=== PATIENT | female | born 1945 | race Caucasian/White ===

== ENCOUNTER 2022-05-16 15:09 | Inpatient (IN) | payer BC, OTHER ==
[~2022-05-16 15:09] MED LIST: SODIUM ZIRCONIUM CYCLOSILICATE (LOKELMA) 5 GM PACKET PO ONE
[2022-05-16] MEDS ORDERED: SODIUM CHLORIDE 1,000 ML IV STA (17:43)
[2022-05-16] MEDS ORDERED: PIPERACILLIN/TAZOB 4.5 GM 4.5 GM in DEXTROSE 5%-WATER 100 ML IVPB ONE (17:44)
[2022-05-16] MEDS ORDERED: PIPERACILLIN/TAZOB 4.5 GM 4.5 GM/100 ML BAG IVPB ONE (18:51)
[2022-05-16 19:29] LABS: VENOUS BASE EXCESS -0.9 mmol/L (-2-2); VENOUS O2 SATURATION 25.6 % (70-80); VENOUS PCO2 38.4 mmHg (38-52); VENOUS PH 7.407 (7.310-7.410)
[2022-05-16 19:41] LABS: BASO % 0.6 % (0-2.0); HEMATOCRIT 34.7 % (32.4-45.2); HEMOGLOBIN 11.1 GM/dL (10.7-15.3); LYMPH % 12.5 % (8-40); MCH 24.4 pg (25.7-33.7); MCHC 31.9 g/dl (32.0-36.0); MEAN CELL VOLUME 76.3 fl (80-96); MEAN PLT VOLUME 8.3 fl (7.5-11.1); MONO % 11.5 % (3.8-10.2); NEUT % 75.4 % (42.8-82.8); PLATELET COUNT 276 10^3/uL (134-434); RBC 4.54 M/mm3 (3.60-5.2); RDW 17.6 % (11.6-15.6); WHITE BLOOD COUNT 10.8 K/mm3 (4.0-10.0)
[2022-05-16 19:47] LABS: INR 1.11 (0.83-1.09); PROTHROMBIN TIME (PATIENT) 12.8 SEC (9.7-13.0)
[2022-05-16 19:50] LABS: ACTIVATED PTT 28.7 SECONDS (25.2-36.5)
[2022-05-16 19:56] LABS: ALBUMIN 3.1 g/dl (3.4-5.0); BLOOD UREA NITROGEN 20.4 mg/dL (7-18); CALCIUM 9.1 mg/dL (8.5-10.1)
[2022-05-16 20:02] LABS: BILIRUBIN,TOTAL 0.6 mg/dL (0.2-1); TOT PROT 7.3 g/dl (6.4-8.2)
[2022-05-16 20:03] LABS: LACTIC ACID 2.6 mmol/L (0.4-2.0)
[2022-05-16] MEDS ORDERED: VANCOMYCIN 1 GM in D5W (PRE-DOCKED) 1,000 MG/250 ML IVPB ONE (20:06)
[2022-05-16] MEDS ORDERED: ASPIRIN 81 MG CHEWABLE TABLETS PO ONE ×2 (20:18→20:48)
[2022-05-16] MEDS ORDERED: SODIUM ZIRCONIUM CYCLOSILICATE (LOKELMA) 5 GM PACKET ONE (20:26)
[2022-05-16] MEDS ORDERED: ASPIRIN 81 MG CHEWABLE TABLETS ONE ×2 (20:27→20:57)
[2022-05-16] MEDS ORDERED: VANCOMYCIN/WATER FOR INJ (PEG) 1,000 MG/200 ML BAG IVPB ONE (20:27)
[2022-05-16] MEDS ORDERED: HEPARIN NA (PORCINE) 5,000 UNITS/ML 1ML VIAL IVPUSH PRN ×2 (20:49)
[2022-05-16] MEDS ORDERED: ATORVASTATIN CA 80 MG TABLET (FP) PO ONE (20:49)
[2022-05-16] MEDS: SODIUM ZIRCONIUM CYCLOSILICATE (LOKELMA) 5 GM PACKET PO SCH (20:54)
[2022-05-16] MEDS ORDERED: ATORVASTATIN CA 80 MG TABLET (FP) ONE (20:57)
[2022-05-16] MEDS ORDERED: HEPARIN NA (PORCINE) 5,000 UNITS/ML 1ML VIAL ONE (20:57)
[2022-05-16] MEDS ORDERED: HEPARIN INFUSION - 25,000 UNITS/500 ML INFUS.BAG IVPB ONE (20:58)
[2022-05-16] MEDS ORDERED: HEPARIN - 25,000 UNIT in SODIUM CHLORIDE 495 ML IV SCH (21:00)
[2022-05-16] MEDS ORDERED: LACTATED RINGERS SOLUTION 1000 ML INFUS.BAG IV ONE (23:32)
[2022-05-17 00:23] LABS: LACTIC ACID 2.3 mmol/L (0.4-2.0)
[2022-05-17 01:23] VITALS: BMI 27.1
[2022-05-17 01:50] LABS: HEMATOCRIT 31.3 % (32.4-45.2); HEMOGLOBIN 9.8 GM/dL (10.7-15.3); MCH 24.1 pg (25.7-33.7); MCHC 31.3 g/dl (32.0-36.0); MEAN CELL VOLUME 77.1 fl (80-96); MEAN PLT VOLUME 8.5 fl (7.5-11.1); PLATELET COUNT 250 10^3/uL (134-434); RBC 4.06 M/mm3 (3.60-5.2); RDW 17.8 % (11.6-15.6); WHITE BLOOD COUNT 12.1 K/mm3 (4.0-10.0)
[2022-05-17 02:27] LABS: CALCIUM 7.9 mg/dL (8.5-10.1)
[2022-05-17 02:28] LABS: ALBUMIN 2.6 g/dl (3.4-5.0); BLOOD UREA NITROGEN 22.2 mg/dL (7-18)
[2022-05-17 02:33] LABS: BILIRUBIN,TOTAL 0.5 mg/dL (0.2-1)
[2022-05-17 02:55] LABS: LACTIC ACID 2.2 mmol/L (0.4-2.0)
[2022-05-17 07:53] LABS: BASO % 0.7 % (0-2.0); EOS % 0.1 % (0-4.5); HEMATOCRIT 30.5 % (32.4-45.2); HEMOGLOBIN 9.3 GM/dL (10.7-15.3); LYMPH % 16.4 % (8-40); MCH 23.7 pg (25.7-33.7); MCHC 30.6 g/dl (32.0-36.0); MEAN CELL VOLUME 77.3 fl (80-96); MEAN PLT VOLUME 8.5 fl (7.5-11.1); MONO % 10.2 % (3.8-10.2); NEUT % 72.6 % (42.8-82.8); PLATELET COUNT 246 10^3/uL (134-434); RBC 3.95 M/mm3 (3.60-5.2); RDW 18.1 % (11.6-15.6); WHITE BLOOD COUNT 10.4 K/mm3 (4.0-10.0)
[2022-05-17 08:01] LABS: INR 1.12 (0.83-1.09); PROTHROMBIN TIME (PATIENT) 12.9 SEC (9.7-13.0)
[2022-05-17 08:03] LABS: ACTIVATED PTT 48.8 SECONDS (25.2-36.5)
[2022-05-17 08:21] LABS: ALBUMIN 2.4 g/dl (3.4-5.0); CALCIUM 7.9 mg/dL (8.5-10.1)
[2022-05-17 08:22] LABS: BLOOD UREA NITROGEN 21.5 mg/dL (7-18)
[2022-05-17 08:24] LABS: CREATININE 0.8 mg/dL (0.55-1.3)
[2022-05-17 08:25] LABS: TOT PROT 5.8 g/dl (6.4-8.2)
[2022-05-17 08:26] LABS: BILIRUBIN,TOTAL 0.4 mg/dL (0.2-1)
[2022-05-17] MEDS ORDERED: VANCOMYCIN 1 GM/200 ML PREMIX BAG IVPB SCH (09:00)
[2022-05-17] MEDS: SODIUM ZIRCONIUM CYCLOSILICATE (LOKELMA) 5 GM PACKET PO SCH (09:44)
[2022-05-17] MEDS ORDERED: PIPERACILLIN/TAZOB 4.5 GM 4.5 GM in DEXTROSE 5%-WATER 100 ML IVPB SCH ×2 (10:00→11:30)
[2022-05-17 13:55] VITALS: BP 118/83; PULSE 113; RESP 20; TEMP 98
[2022-05-18] MEDS ORDERED: VANCOMYCIN 1 GM/200 ML PREMIX BAG IVPB SCH (09:00)
== END 2022-05-17 14:15 | disposition short-term general hospital (02) | DRG 176 ==
LOC: JER 15:09 → JERBED 17:41 → JICU 05-17 00:26
PROVIDERS: ADMIT Internal Medicine; ATTEND Internal Medicine
DX: I26.99 Other pulmonary embolism without acute cor pulmonale (principal); I47.1 Supraventricular tachycardia; E87.20 Acidosis, unspecified; L03.116 Cellulitis of left lower limb; L03.115 Cellulitis of right lower limb; E87.5 Hyperkalemia; I27.20 Pulmonary hypertension, unspecified; I25.2 Old myocardial infarction
CPT/HCPCS: 0241U-QW; 36415; 71045-TC-FY; 71275-TC; 80053; 80061; 82465; 82550; 82553; 82803; 83036; 83605; 83880; 84439; 84443; 84484; 85025; 85027; 85379; 85384; 85610; 85730; 86850; 86900; 86901; 87040; 87070; 87186; 87205; 93005; 93010; 93306-TC; 93308; 93970-TC; 99291; J1644

== ENCOUNTER 2023-03-19 16:58 | Emergency (ER) | payer BC ==
[2023-03-19 17:11] VITALS: RESP 18; BMI 30.2
[2023-03-19] MEDS ORDERED: DIPHTH,PERTUSS(ACELL),TET 0.5 ML DISP.SYRIN IM ONE ×2 (17:46→18:14)
[2023-03-19] MEDS ORDERED: LIDOCAINE 1%/EPI 1:100000 (20 ML MULTI DOSE VIAL) INF ONE (18:37)
[2023-03-19] MEDS ORDERED: LIDOCAINE 1%/EPI 1:100000 (50 ML MULTI DOSE VIAL) ONE (18:43)
[2023-03-19 20:37] VITALS: BP 136/78; PULSE 88; TEMP 98.5
== END 2023-03-19 20:37 | disposition home or self-care (01) ==
LOC: JER 16:58
PROC: 3E0234Z Introduction of Serum, Toxoid and Vaccine into Muscle, Percutaneous Approach (ICD-10-PCS; principal; 2023-03-19)
PROC: 0HQ1XZZ Repair Face Skin, External Approach (ICD-10-PCS; 2023-03-19)
DX: S01.81XA Laceration without foreign body of other part of head, initial encounter (principal); S60.012A Contusion of left thumb without damage to nail, initial encounter; W01.0XXA Fall on same level from slipping, tripping and stumbling without subsequent striking against object, initial encounter; Y92.009 Unspecified place in unspecified non-institutional (private) residence as the place of occurrence of the external cause
CPT/HCPCS: 70450-TC; 70486-TC; 72125-TC; 73130-TC-LT-FY; 90715; 93005; 93010; 99285-25

== ENCOUNTER 2023-11-04 04:51 | Day surgery (SDC) | payer BC ==
[2023-11-03 10:50] VITALS: BMI 30.4
[2023-11-04 11:34] VITALS: TEMP 97.5
[2023-11-04 12:08] VITALS: BP 151/67; PULSE 72; RESP 15
[2023-11-04 13:26] LABS: CHLORIDE 110 mmol/L (98-107); POTASSIUM 3.9 mmol/L (3.5-5.1); SODIUM 144 mmol/L (136-145)
[2023-11-04 13:28] LABS: CALCIUM 8.9 mg/dL (8.5-10.1)
[2023-11-04 13:29] LABS: ALBUMIN 3.6 g/dl (3.4-5.0); ANION GAP 6 mmol/L (4-13); CO2 28 mmol/L (21-32); GLUCOSE,RANDOM 134 mg/dL (74-106)
[2023-11-04 13:32] LABS: CREATININE 0.8 mg/dL (0.55-1.3); SGOT/AST 18 U/L (15-37); SGPT/ALT 21 U/L (13-61)
[2023-11-04 13:34] LABS: BILIRUBIN,TOTAL 0.4 mg/dL (0.2-1); TOT PROT 6.8 g/dl (6.4-8.2)
[2023-11-04 13:35] LABS: ALK PHOS 64 U/L (45-117)
[2023-11-04 13:56] LABS: IRON SERUM 51 ug/dL (50-175); TOTAL IRON BINDING CAPACITY 508 ug/dL (250-450)
== END 2023-11-04 12:56 | disposition home or self-care (01) ==
LOC: JASU-ENDO 04:51
PROVIDERS: ATTEND Internal Medicine Gastroenterology
PROC: 0DBH8ZX Excision of Cecum, Via Natural or Artificial Opening Endoscopic, Diagnostic (ICD-10-PCS; 2023-11-04)
PROC: 0DBL8ZX Excision of Transverse Colon, Via Natural or Artificial Opening Endoscopic, Diagnostic (ICD-10-PCS; 2023-11-04)
PROC: 0DBN8ZX Excision of Sigmoid Colon, Via Natural or Artificial Opening Endoscopic, Diagnostic (ICD-10-PCS; 2023-11-04)
PROC: 3E0H8KZ Introduction of Other Diagnostic Substance into Lower GI, Via Natural or Artificial Opening Endoscopic (ICD-10-PCS; 2023-11-04)
PROC: 0DB98ZX Excision of Duodenum, Via Natural or Artificial Opening Endoscopic, Diagnostic (ICD-10-PCS; 2023-11-04)
PROC: 0DB78ZX Excision of Stomach, Pylorus, Via Natural or Artificial Opening Endoscopic, Diagnostic (ICD-10-PCS; 2023-11-04)
PROC: 0DB68ZX Excision of Stomach, Via Natural or Artificial Opening Endoscopic, Diagnostic (ICD-10-PCS; 2023-11-04)
PROC: 0DBL8ZX Excision of Transverse Colon, Via Natural or Artificial Opening Endoscopic, Diagnostic (ICD-10-PCS; principal; 2023-11-04 10:00)
DX: D12.0 Benign neoplasm of cecum (principal); D12.3 Benign neoplasm of transverse colon; D12.8 Benign neoplasm of rectum; K63.5 Polyp of colon; K29.50 Unspecified chronic gastritis without bleeding; K44.9 Diaphragmatic hernia without obstruction or gangrene; K21.9 Gastro-esophageal reflux disease without esophagitis; K31.7 Polyp of stomach and duodenum; I10 Essential (primary) hypertension
CPT/HCPCS: 36415; 80053; 82378; 82728; 83540; 83550; 86140; 88305-TC; 88342-TC

== ENCOUNTER 2024-01-27 05:23 | Inpatient (IN) | payer BC ==
[2024-01-27] MEDS ORDERED: BUPIVACAINE HCL/PF 0.25% (2.5MG/ML) 10 ML VIAL ONE (11:01)
[2024-01-27] MEDS ORDERED: INDOCYANINE GREEN 25 MG/10 ML VIAL IVPUSH ONE (11:05)
[2024-01-27] MEDS ORDERED: SUCCINYLCHOLINE CHLORIDE 200 MG/10 ML SYRINGE ONE (11:44)
[2024-01-27] MEDS ORDERED: MIDAZOLAM HCL 2 MG/2 ML SINGLE DOSE VIAL ONE (11:44)
[2024-01-27] MEDS ORDERED: ROCURONIUM BROMIDE 50 MG/5 ML SYRINGE ONE (11:44)
[2024-01-27] MEDS: cefOXitin SODIUM 2 GM VIAL (RESTRICTED TO ID) IVPB ONE (12:30)
[2024-01-27] MEDS ORDERED: HYDROmorphone HCl 2 MG/ML VIAL ONE (12:56)
[2024-01-27] MEDS: BUPIVACAINE HCL/PF 0.25% (2.5MG/ML) 10 ML VIAL IJ ONE ×2 (13:12)
[2024-01-27] MEDS ORDERED: METOPROLOL TARTRATE 5 MG/5 ML VIAL ONE (16:36)
[2024-01-27] MEDS ORDERED: ONDANSETRON 4 MG/2 ML VIAL ONE ×2 (16:36)
[2024-01-27] MEDS ORDERED: GLYCOPYRROLATE 0.2 MG/1 ML VIAL ONE (16:37)
[2024-01-27] MEDS ORDERED: NEOSTIGMINE METHYLSULFATE 0.5 MG/1 ML - 10 ML MDV ONE (16:37)
[2024-01-27] MEDS: ACETAMINOPHEN 1000 MG/100 ML BAG IVPB ONE (17:10)
[2024-01-27 17:36] LABS: BASO % 0.3 % (0-2.0); EOS % 0.2 % (0-4.5); HEMATOCRIT 31.4 % (32.4-45.2); HEMOGLOBIN 10.4 GM/dL (10.7-15.3); LYMPH % 5.3 % (8-40); MCH 30.8 pg (25.7-33.7); MCHC 33.2 g/dl (32.0-36.0); MEAN CELL VOLUME 92.6 fl (80-96); MEAN PLT VOLUME 8.7 fl (7.5-11.1); MONO % 5.3 % (3.8-10.2); NEUT % 88.9 % (42.8-82.8); PLATELET COUNT 219 10^3/uL (134-434); RBC 3.39 M/mm3 (3.60-5.2); RDW 14.7 % (11.6-15.6)
[2024-01-27] MEDS ORDERED: morphine SULFATE 4 MG/ML VIAL IVPUSH PRN (17:59)
[2024-01-27 18:01] LABS: POTASSIUM 4.1 mmol/L (3.5-5.1)
[2024-01-27 18:03] LABS: BLOOD UREA NITROGEN 12.6 mg/dL (7-18)
[2024-01-27] MEDS ORDERED: ACETAMINOPHEN INJECTION 100 ML IVPB ONE (18:03)
[2024-01-27 18:06] LABS: CREATININE 1.2 mg/dL (0.55-1.3)
[2024-01-27] MEDS ORDERED: ONDANSETRON 4 MG/2 ML VIAL IVPUSH PRN (18:07)
[2024-01-27] MEDS: LACTATED RINGERS SOLUTION 1,000 ML IV SCH (18:50)
[2024-01-27] MEDS: IBUPROFEN 400 MG TABLET (FP) PO SCH (19:45)
[2024-01-27] MEDS: CEFOXITIN SODIUM 2 GM in DEXTROSE 5%-WATER - 100 ML IVPB SCH (20:46)
[2024-01-28] MEDS: CEFOXITIN SODIUM 2 GM in DEXTROSE 5%-WATER 100 ML IVPB SCH (02:08)
[2024-01-28] MEDS: ACETAMINOPHEN 1000 MG/100 ML BAG IVPB SCH (02:35)
[2024-01-28 03:28] VITALS: BMI 30.9
[2024-01-28 09:12] LABS: POTASSIUM 3.6 mmol/L (3.5-5.1)
[2024-01-28] MEDS: PANTOPRAZOLE 40 MG TABLET PO SCH (09:13)
[2024-01-28] MEDS: THIAMINE 100 MG TABLET PO SCH (09:13)
[2024-01-28] MEDS: FOLIC ACID 1 MG TABLET (FP) PO SCH (09:13)
[2024-01-28] MEDS: ENOXAPARIN NA (PORCINE) 40 MG/0.4 ML DISP.SYRIN SQ SCH (09:14)
[2024-01-28 09:16] LABS: CALCIUM 7.6 mg/dL (8.5-10.1)
[2024-01-28 09:20] LABS: CREATININE 1.8 mg/dL (0.55-1.3)
[2024-01-28] MEDS ORDERED: PANTOPRAZOLE SODIUM 40 MG PO SCH (10:00)
[2024-01-28] MEDS ORDERED: FERROUS SULFATE 325 MG PO SCH (10:00)
[2024-01-28 15:55] LABS: BASO % 0.5 % (0-2.0); EOS % 0.9 % (0-4.5); HEMATOCRIT 31.1 % (32.4-45.2); HEMOGLOBIN 10.2 GM/dL (10.7-15.3); MCH 30.7 pg (25.7-33.7); MCHC 32.8 g/dl (32.0-36.0); MEAN CELL VOLUME 93.6 fl (80-96); MEAN PLT VOLUME 8.8 fl (7.5-11.1); MONO % 8.6 % (3.8-10.2); PLATELET COUNT 228 10^3/uL (134-434); RBC 3.32 M/mm3 (3.60-5.2); RDW 14.5 % (11.6-15.6); WHITE BLOOD COUNT 10.2 K/mm3 (4.0-10.0)
[2024-01-28] MEDS ORDERED: ACETAMINOPHEN 500 MG TABLET (FP) PO PRN ×2 (17:00→23:00)
[2024-01-29 07:47] LABS: POTASSIUM 3.8 mmol/L (3.5-5.1)
[2024-01-29 07:57] LABS: BLOOD UREA NITROGEN 7.7 mg/dL (7-18); CALCIUM 8.3 mg/dL (8.5-10.1)
[2024-01-29 08:00] LABS: CREATININE 0.8 mg/dL (0.55-1.3)
[2024-01-29] MEDS ORDERED: oxyCODONE HCL 5 MG TABLET PO PRN (11:00)
[2024-01-29] MEDS ORDERED: IBUPROFEN 400 MG TABLET (FP) PO PRN (11:01)
[2024-01-29 12:44] LABS: BASO % 0.4 % (0-2.0); EOS % 0.7 % (0-4.5); HEMATOCRIT 35.7 % (32.4-45.2); HEMOGLOBIN 11.8 GM/dL (10.7-15.3); LYMPH % 6.2 % (8-40); MCH 30.5 pg (25.7-33.7); MCHC 32.9 g/dl (32.0-36.0); MEAN CELL VOLUME 92.6 fl (80-96); MEAN PLT VOLUME 9.5 fl (7.5-11.1); MONO % 5.7 % (3.8-10.2); PLATELET COUNT 290 10^3/uL (134-434); RBC 3.85 M/mm3 (3.60-5.2); RDW 14.6 % (11.6-15.6); WHITE BLOOD COUNT 10.2 K/mm3 (4.0-10.0)
[2024-01-29] MEDS: ACETAMINOPHEN 500 MG TABLET (FP) PO SCH (13:25)
[2024-01-29 16:21] LABS: BASO % 0.5 % (0-2.0); EOS % 0.6 % (0-4.5); HEMATOCRIT 34.9 % (32.4-45.2); HEMOGLOBIN 11.9 GM/dL (10.7-15.3); LYMPH % 6.8 % (8-40); MCH 31.4 pg (25.7-33.7); MEAN CELL VOLUME 92.5 fl (80-96); MEAN PLT VOLUME 9.4 fl (7.5-11.1); MONO % 6.7 % (3.8-10.2); NEUT % 85.4 % (42.8-82.8); PLATELET COUNT 257 10^3/uL (134-434); RBC 3.78 M/mm3 (3.60-5.2); RDW 14.6 % (11.6-15.6); WHITE BLOOD COUNT 9.9 K/mm3 (4.0-10.0)
[2024-01-30 09:26] LABS: POTASSIUM 4.2 mmol/L (3.5-5.1)
[2024-01-30 09:27] LABS: BLOOD UREA NITROGEN 8.4 mg/dL (7-18); CALCIUM 8.3 mg/dL (8.5-10.1)
[2024-01-30 09:31] LABS: CREATININE 0.9 mg/dL (0.55-1.3)
[2024-01-30] MEDS: RIVAROXABAN 10 MG TABLET PO SCH (09:46)
[2024-01-30 10:17] VITALS: BP 128/60; PULSE 81; RESP 20; TEMP 97.8
== END 2024-01-30 12:53 | disposition home or self-care (01) | DRG 331 ==
LOC: J2C 05:23 → J8W 20:13
PROVIDERS: ADMIT Surgery; ATTEND Internal Medicine
PROC: 8E0W4CZ Robotic Assisted Procedure of Trunk Region, Percutaneous Endoscopic Approach (ICD-10-PCS; 2024-01-27)
PROC: 0DTF4ZZ Resection of Right Large Intestine, Percutaneous Endoscopic Approach (ICD-10-PCS; principal; 2024-01-27 11:30)
DX: C18.4 Malignant neoplasm of transverse colon (principal); I10 Essential (primary) hypertension; I87.2 Venous insufficiency (chronic) (peripheral); D64.9 Anemia, unspecified; Z86.718 Personal history of other venous thrombosis and embolism
CPT/HCPCS: 36415; 80048; 85025; 86140; 88309-TC; 88329; 88341-TC; 94010; 94760; 97116-GP; 97161-GP; J0131